=== PATIENT | male | born 1995 | race African-American/Black ===

== ENCOUNTER 2016-05-22 22:18 | Emergency (ER) | payer OTHER, MEDICAID ==
[2016-05-22 23:53] VITALS: BP 122/73
[2016-05-22] MEDS ORDERED: predniSONE TAB* 20 MG PO ONE ×2 (23:57)
[2016-05-22] MEDS ORDERED: Oxymetazoline 0.05% NASAL SPR* 15 ML BTL BOTH NARES ONE ×2 (23:57)
[2016-05-22] MEDS ORDERED: Pseudoephedrine TAB* 60 MG PO ONE ×2 (23:57)
--- NOTE | 2016-05-23 00:11 | ED ---
Throat Pain/Nasal Congestion - HPI Summary HPI Summary: The patient is a 21 year old male presenting to ED for complaint of copious clear rhinorrhea, watery drainage bilateral eyes, ear pressure and popping, and frequent sneezing since March 2016. Has been taking Benadryl, Claritin, Na D without improvement. [facility] with prescribed Nasocort without improvement. Denies fever, chills, diaphoresis, sore throat, inability to swallow, cough, shortness of breath, abdominal pain, nausea, vomiting, change in voiding, joint redness or swelling, rash. No preceding history of seasonal allergies. Denies significant past medical or surgical history. Denies significant family history. SH: Student at [employer] ([employer]). Denies smoking. - History of Current Complaint Chief Complaint: EDGeneral Time Seen by Provider: 05/22/16 23:47 - Allergies/Home Medications Allergies/Adverse Reactions: Allergies Allergy/AdvReac Type Severity Reaction Status Date / Time No Known Allergies Allergy Verified 05/22/16 22:25 PMH/Surg Hx/FS Hx/Imm Hx Infectious Disease History: Yes Infectious Disease History: Denies: Traveled Outside the [place] in Last 30 Days Review of Systems Constitutional: Negative Positive: Drainage. Negative: Erythema Positive: Ear Ache, Nasal Discharge. Negative: Sore Throat Respiratory: Negative Negative: Cough Gastrointestinal: Negative Negative: Abdominal Pain, Vomiting, Diarrhea, Nausea Musculoskeletal: Negative Negative: Arthralgia, Myalgia Skin: Negative Negative: Rash Positive: Headache - mild right sinus All Other Systems Reviewed And Are Negative: Yes Physical Exam Triage Information Reviewed: Yes Vital Signs On Initial Exam: Initial Vitals Temp Pulse Resp BP Pulse Ox 98.7 F 77 16 129/73 98 05/22/16 22:21 05/22/16 22:21 05/22/16 22:21 05/22/16 22:21 05/22/16 22:21 Vital Signs Reviewed: Yes Appearance: Positive: Well-Appearing, No Pain Distress, Well-Nourished Skin: Positive: Warm, Skin Color Reflects Adequate Perfusion, Dry Head/Face: Positive: Normal Head/Face Inspection Eyes: Positive: Normal, EOMI, DMITRIY, Conjunctiva Clear, Other: - sclera mild injected bilaterally with clear lacrimation ENT: Positive: Hearing grossly normal, Pharynx normal, Nasal congestion, Nasal drainage - copious clear drainage, TMs normal Neck: Positive: Supple, Nontender, No Lymphadenopathy Respiratory/Lung Sounds: Positive: Clear to Auscultation, Breath Sounds Present. Negative: Rales, Rhonchi, Wheezes Cardiovascular: Positive: Normal, RRR, Pulses are Symmetrical in both Upper and Lower Extremities, S1, S2. Negative: Murmur, Rub Abdomen Description: Positive: Nontender, No Organomegaly, Soft Bowel Sounds: Positive: Present Neurological: Positive: Normal - awake, alert Psychiatric: Positive: Normal AVPU Assessment: Alert Diagnostics - Vital Signs Vital Signs Temp Pulse Resp BP Pulse Ox 05/22/16 23:53 98.7 F 69 18 122/73 99 05/22/16 22:21 98.7 F 77 16 129/73 98 - Laboratory Lab Statement: Any lab studies that have been ordered have been reviewed, and results considered in the medical decision making process. EENT Course/Dx - Course Assessment/Plan: Clinical impression of allergic rhinitis failing OTC antihistamine and intranasal steroid. Will prescribe short taper of oral steroid and decongestant. Advised to follow-up with [facility] in 1 week. Given referral to binding folder machine. - Diagnoses Provider Diagnoses: Allergic rhinitis Discharge - Discharge Plan Condition: Stable Disposition: HOME Patient Education Materials: Allergic Rhinitis (ED) Referrals: Billy Valle MD [Medical Doctor] - As Soon As Possible
== END 2016-05-23 00:25 | disposition home or self-care (01) ==
LOC: ED 22:18
DX: J30.9 Allergic rhinitis, unspecified (principal)
CPT/HCPCS: 99282; A9270-GY; J7512